=== PATIENT | female | born 1960 | race Caucasian/White ===

== ENCOUNTER 2016-09-27 15:07 | Emergency (ER) | payer BC, OTHER ==
[2016-09-27 16:36] LABS: Appearance,Urine Clear (Clear); Bilirubin,Urine Negative (Negative); Glucose,Urine (UA) Negative (Negative); Ketones,Urine Negative (Negative); Leukocyte Esterase,Urine Moderate (Negative); Nitrite,Urine Negative (Negative); Particle Count 1137; Protein,Urine Negative (Negative); RBC,Urine <1 /hpf (0-5); Specific Gravity,Urine 1.004 (1.001-1.035); Squamous Epithelial Cell,Urine 1 /hpf (0-4); UA Billing (MACRO vs. MICRO) MICRO; Urobilinogen,Urine <2.0 mg/dL (<2.0); WBC,Urine 7 /hpf (0-5)
--- NOTE | 2016-09-27 16:44 | XR ---
EXAMINATION TYPE: XR lumbosacral spine min 4V DATE OF EXAM: 09/27/2016 4:38 PM COMPARISON: NONE HISTORY: Pain TECHNIQUE: 5 view lumbar spine FINDINGS: There 5 lumbar-type vertebral bodies. The pedicles are intact. Disc heights are preserved. Vertebral body heights are preserved. Facets are normal. No spondylolytic defects are evident. IMPRESSION: 1. Normal lumbar spine
[2016-09-27] MEDS ORDERED: IBUPROFEN 800 MG TAB PO STA (17:44)
--- NOTE | 2016-09-27 17:46 | ED ---
Back Pain HPI - General Chief Complaint: Back Pain/Injury Stated Complaint: Back Injury ([facility]) Time Seen by Provider: 09/27/16 16:10 Source: patient Limitations: no limitations - History of Present Illness Initial Comments: Patient is a 56-year-old white female presenting to the emergency department with complaints of lumbar back pain. Patient states she was at work yesterday and bend over and she's had increased pain since. Patient also complains of urinary frequency without dysuria or hematuria. Patient denies chills, fevers, shortness of breath, chest pain, abdominal pain, numbness, tingling, urinary incontinence, fecal incontinence, or saddle astasia. Patient denies antibiotic use in the last 30 days. Patient states she has a history of frequent urinary tract infections and was last on antibiotics in May. MD Complaint: back pain Onset/Timin -: days(s) Similar Symptoms Previously: No Place: work Radiation: none Severity: moderate Severity scale (1-10): 8 Quality: aching Consistency: constant Improves With: none Worsens With: none Associated Symptoms: other (Urinary frequency) Treatments Prior to Arrival: acetaminophen - Related Data Previous Rx's Medication Instructions Recorded Ciprofloxacin HCl [Cipro] 250 mg PO Q12HR #6 tablet 09/27/16 HYDROcodone/APAP 5-325MG [[place] 1 tab PO Q4HR PRN #12 tab 09/27/16 5-325] Allergies Allergy/AdvReac Type Severity Reaction Status Date / Time adhesive AdvReac Rash/Hives Verified 09/27/16 17:55 amoxicillin AdvReac Nausea & Verified 09/27/16 17:55 Vomiting codeine AdvReac Nausea & Verified 09/27/16 17:55 Vomiting Sulfa (Sulfonamide AdvReac Nausea & Verified 09/27/16 17:55 Antibiotics) Vomiting Review of Systems ROS Statement: Those systems with pertinent positive or pertinent negative responses have been documented in the HPI. ROS Other: All systems not noted in ROS Statement are negative. Past Medical History Past Medical History: No Reported History History of Any Multi-Drug Resistant Organisms: None Reported Past Surgical History: No Surgical Hx Reported Past Psychological History: No Psychological Hx Reported Smoking Status: Never smoker Past Alcohol Use History: None Reported Past Drug Use History: None Reported General Exam Limitations: no limitations General appearance: alert, in no apparent distress Head exam: Present: atraumatic, normocephalic, normal inspection Eye exam: Present: normal appearance, PERRL, EOMI. Absent: scleral icterus, conjunctival injection, periorbital swelling ENT exam: Present: normal exam, mucous membranes moist Neck exam: Present: normal inspection, full ROM. Absent: tenderness, meningismus, lymphadenopathy Respiratory exam: Present: normal lung sounds bilaterally. Absent: respiratory distress, wheezes, rales, rhonchi, stridor Cardiovascular Exam: Present: regular rate, normal rhythm, normal heart sounds. Absent: systolic murmur, diastolic murmur, rubs, gallop, clicks GI/Abdominal exam: Present: soft, normal bowel sounds. Absent: tenderness Extremities exam: Present: normal inspection, full ROM, normal capillary refill. Absent: tenderness, calf tenderness Back exam: Present: normal inspection, full ROM, tenderness (To bilateral lower lumbar region). Absent: CVA tenderness (R), CVA tenderness (L), muscle spasm, paraspinal tenderness, vertebral tenderness, rash noted Expanded Back exam: Negative Straight Leg Raising: Left, Right Neurological exam: Present: alert, oriented X3, CN II-XII intact, normal gait, reflexes normal. Absent: motor sensory deficit Psychiatric exam: Present: normal affect, normal mood Skin exam: Present: warm, dry, intact, normal color. Absent: rash Course Vital Signs 09/27/16 09/27/16 15:57 17:56 Temperature 98.3 F 98.8 F Pulse Rate 75 78 Respiratory 20 16 Rate Blood Pressure 131/89 135/78 O2 Sat by Pulse 98 99 Oximetry Medical Decision Making - Medical Decision Making Urinary tract infection, urine culture pending. Patient started on Cipro. Lumbar strain. Patient instructed to continue Motrin and [place] for pain. Lumbar spine x-ray negative. Follow-up with primary care physician. Patient agrees with treatment plan. Follow-up parameters discharge instructions reviewed. - Lab Data Lab Results 09/27/16 Range/Units 16:20 Urine Color Light Yellow Urine Appearance Clear (Clear) Urine pH 6.0 (5.0-8.0) Ur Specific [place] 1.004 (1.001-1.035) Urine Protein Negative (Negative) Urine Glucose (UA) Negative (Negative) Urine Ketones Negative (Negative) Urine Blood Negative (Negative) Urine Nitrate Negative (Negative) Urine Bilirubin Negative (Negative) Urine Urobilinogen <2.0 (<2.0) mg/dL Ur Leukocyte Esterase Moderate H (Negative) Urine RBC <1 (0-5) /hpf Urine WBC 7 H (0-5) /hpf Ur Squamous Epith Cells 1 (0-4) /hpf - Radiology Data Radiology results: report reviewed Lumbar spine x-ray negative. Disposition Clinical Impression: Urinary tract infection, Lumbar strain Disposition: HOME SELF-CARE Condition: Good Instructions: Urinary Tract Infection in Women (ED), Acute Low Back Pain (ED) Additional Instructions: Please antibiotic as prescribed. Increase fluid intake to 6-8 glasses of water daily. Continue Motrin or [place] for pain. Follow-up with primary care physician as directed. Patient returns to the emergency department if symptoms do not improve or get worse. Prescriptions: Ciprofloxacin HCl [Cipro] 250 mg PO Q12HR #6 tablet HYDROcodone/APAP 5-325MG [[place] 5-325] 1 tab PO Q4HR PRN #12 tab PRN Reason: Pain Referrals: Noam Freeman DO [Primary Care Provider] - 1-2 days Time of Disposition: 17:46
[2016-09-27 17:57] VITALS: BP 135/78; PULSE 78; RESP 16; TEMP 98.8
== END 2016-09-27 18:04 | disposition home or self-care (01) ==
LOC: EC 15:07
DX: S39.012A Strain of muscle, fascia and tendon of lower back, initial encounter (principal); N39.0 Urinary tract infection, site not specified; Z88.0 Allergy status to penicillin; Z88.5 Allergy status to narcotic agent; Z88.2 Allergy status to sulfonamides; Z91.048 Other nonmedicinal substance allergy status; X50.1XXA Overexertion from prolonged static or awkward postures, initial encounter; Y92.69 Other specified industrial and construction area as the place of occurrence of the external cause; Y99.0 Civilian activity done for income or pay
CPT/HCPCS: 72110; 81001; 87086; 99283

== ENCOUNTER 2018-11-12 21:39 | Observation (INO) | payer BC ==
[2018-11-12 22:24] LABS: Basophils # (A) 0.1 k/uL (0-0.2); Basophils % (A) 1 %; Eosinophils # (A) 0.1 k/uL (0-0.7); Eosinophils % (A) 2 %; HCT 43.4 % (34.0-46.0); HGB 14.3 gm/dL (11.4-16.0); Lymphocytes # (A) 2.1 k/uL (1.0-4.8); Lymphocytes % (A) 43 %; MCH 30.2 pg (25.0-35.0); MCHC 32.9 g/dL (31.0-37.0); MCV 91.7 fL (80.0-100.0); Mean Platelet Volume 6.9; Monocytes # (A) 0.3 k/uL (0-1.0); Monocytes % (A) 6 %; Neutrophils # (A) 2.2 k/uL (1.3-7.7); Neutrophils % (A) 45 %; Platelet Count 227 k/uL (150-450); RBC 4.73 m/uL (3.80-5.40); RDW 12.9 % (11.5-15.5); WBC 4.8 k/uL (3.8-10.6)
--- NOTE | 2018-11-12 22:29 | XR ---
History: ITS.REASON XR Reason: Chest Pain Exam: XR CXR 2 VIEWS Comparison: None available FINDINGS: The lungs are clear. The cardiac silhouette appears upper limits. The visualized osseous structures appear within limits. Calcified right paratracheal node consistent with sequela of previous granulomatous disease. IMPRESSION: No evidence of acute disease.
--- NOTE | 2018-11-12 22:29 | ED ---
General Adult HPI - General Chief complaint: Chest Pain Stated complaint: chest discomfort Time Seen by Provider: 11/12/18 21:53 Source: patient, RN notes reviewed, old records reviewed Mode of arrival: wheelchair Limitations: no limitations - History of Present Illness Initial comments: 58-year-old female presented for evaluation of central chest tightness. States symptoms began approximately 6 hours prior to arrival. They've been constant. No significant dyspnea, no shoulder, jaw, arm pain. Patient describes pain as a tightness in the center of her chest. She has no history of chest pain, no history of CAD. No family history of CAD. She is a nonsmoker. Denies abdominal pain nausea vomiting. Denies diaphoresis. - Related Data Home Medications Medication Instructions Recorded Confirmed Calcium Carbonate [Calcium] 600 mg PO DAILY 11/12/18 11/12/18 Multivitamins, Thera [Multivitamin 1 tab PO DAILY 11/12/18 11/12/18 (formulary)] Allergies Allergy/AdvReac Type Severity Reaction Status Date / Time adhesive AdvReac Rash/Hives Verified 11/12/18 22:27 amoxicillin AdvReac Nausea & Verified 11/12/18 22:27 Vomiting codeine AdvReac Nausea & Verified 11/12/18 22:27 Vomiting Sulfa (Sulfonamide AdvReac Nausea & Verified 11/12/18 22:27 Antibiotics) Vomiting Review of Systems ROS Statement: Those systems with pertinent positive or pertinent negative responses have been documented in the HPI. ROS Other: All systems not noted in ROS Statement are negative. Past Medical History Past Medical History: Cancer Additional Past Medical History / Comment(s): breast Ca History of Any Multi-Drug Resistant Organisms: None Reported Past Surgical History: Hysterectomy Additional Past Surgical History / Comment(s): R mastectomy Past Psychological History: No Psychological Hx Reported Smoking Status: Never smoker Past Alcohol Use History: None Reported Past Drug Use History: None Reported General Exam Limitations: no limitations General appearance: alert, in no apparent distress Head exam: Present: atraumatic, normocephalic Eye exam: Present: normal appearance, PERRL ENT exam: Present: normal exam Neck exam: Present: normal inspection. Absent: tenderness, meningismus Respiratory exam: Present: normal lung sounds bilaterally. Absent: respiratory distress, wheezes Cardiovascular Exam: Present: regular rate, normal rhythm GI/Abdominal exam: Present: soft. Absent: distended, tenderness Rectal exam: Present: deferred Extremities exam: Present: normal inspection, normal capillary refill. Absent: calf tenderness Neurological exam: Present: alert, oriented X3 Psychiatric exam: Present: normal affect, normal mood Skin exam: Present: warm, dry, intact. Absent: cyanosis, diaphoretic Course Vital Signs 11/12/18 11/12/18 21:44 23:23 Temperature 98.4 F Pulse Rate 80 84 Respiratory 20 17 Rate Blood Pressure 163/99 160/80 O2 Sat by Pulse 99 99 Oximetry EKG Findings - EKG Comments: EKG Findings:: EKG: Sinus rhythm, left ventricular hypertrophy, nonspecific ST segment changes, no ST segment elevation, rate of 73, FL interval 126, QRS duration 88, QTC 440, no old for comparison. Medical Decision Making - Medical Decision Making 58-year-old female presenting with 6 hours of chest discomfort and tightness. No radiating symptoms. No nausea or vomiting. EKG is negative for ST segment elevation. Chest x-ray negative for acute cardiopulmonary disease. Patient has normal CBC, normal CMP, initial troponin is negative. Patient will be kept in observation for serial cardiac enzymes, telemetry, cardiology consultation. Case discussed with Dr. Jackson, will admit - Lab Data Result diagrams: 11/12/18 22:09 11/12/18 22:09 Lab Results 11/12/18 11/12/18 11/12/18 Range/Units 22:09 22:09 22:09 WBC 4.8 (3.8-10.6) k/uL RBC 4.73 (3.80-5.40) m/uL Hgb 14.3 (11.4-16.0) gm/dL Hct 43.4 (34.0-46.0) % MCV 91.7 (80.0-100.0) fL MCH 30.2 (25.0-35.0) pg MCHC 32.9 (31.0-37.0) g/dL RDW 12.9 (11.5-15.5) % Plt Count 227 (150-450) k/uL Neutrophils % 45 % Lymphocytes % 43 % Monocytes % 6 % Eosinophils % 2 % Basophils % 1 % Neutrophils # 2.2 (1.3-7.7) k/uL Lymphocytes # 2.1 (1.0-4.8) k/uL Monocytes # 0.3 (0-1.0) k/uL Eosinophils # 0.1 (0-0.7) k/uL Basophils # 0.1 (0-0.2) k/uL PT (9.0-12.0) sec INR (<1.2) APTT (22.0-30.0) sec Sodium 139 (137-145) mmol/L Potassium 4.0 (3.5-5.1) mmol/L Chloride 105 (98-107) mmol/L Carbon Dioxide 25 (22-30) mmol/L Anion Gap 9 mmol/L BUN 13 (7-17) mg/dL Creatinine 0.56 (0.52-1.04) mg/dL Est GFR (CKD-EPI)AfAm >90 (>60 ml/min/1.73 sqM) Est GFR (CKD-EPI)NonAf >90 (>60 ml/min/1.73 sqM) Glucose 82 (74-99) mg/dL Calcium 9.3 (8.4-10.2) mg/dL Magnesium 2.1 (1.6-2.3) mg/dL Total Bilirubin 0.5 (0.2-1.3) mg/dL AST 18 (14-36) U/L ALT 28 (9-52) U/L Alkaline Phosphatase 57 (38-126) U/L Troponin I (0.000-0.034) ng/mL NT-Pro-B Natriuret Pep 122 pg/mL Total Protein 7.3 (6.3-8.2) g/dL Albumin 4.6 (3.5-5.0) g/dL Lipase 150 (23-300) U/L 11/12/18 11/12/18 Range/Units 22:09 22:09 WBC (3.8-10.6) k/uL RBC (3.80-5.40) m/uL Hgb (11.4-16.0) gm/dL Hct (34.0-46.0) % MCV (80.0-100.0) fL MCH (25.0-35.0) pg MCHC (31.0-37.0) g/dL RDW (11.5-15.5) % Plt Count (150-450) k/uL Neutrophils % % Lymphocytes % % Monocytes % % Eosinophils % % Basophils % % Neutrophils # (1.3-7.7) k/uL Lymphocytes # (1.0-4.8) k/uL Monocytes # (0-1.0) k/uL Eosinophils # (0-0.7) k/uL Basophils # (0-0.2) k/uL PT 10.0 (9.0-12.0) sec INR 0.9 (<1.2) APTT 23.7 (22.0-30.0) sec Sodium (137-145) mmol/L Potassium (3.5-5.1) mmol/L Chloride (98-107) mmol/L Carbon Dioxide (22-30) mmol/L Anion Gap mmol/L BUN (7-17) mg/dL Creatinine (0.52-1.04) mg/dL Est GFR (CKD-EPI)AfAm (>60 ml/min/1.73 sqM) Est GFR (CKD-EPI)NonAf (>60 ml/min/1.73 sqM) Glucose (74-99) mg/dL Calcium (8.4-10.2) mg/dL Magnesium (1.6-2.3) mg/dL Total Bilirubin (0.2-1.3) mg/dL AST (14-36) U/L ALT (9-52) U/L Alkaline Phosphatase (38-126) U/L Troponin I <0.012 (0.000-0.034) ng/mL NT-Pro-B Natriuret Pep pg/mL Total Protein (6.3-8.2) g/dL Albumin (3.5-5.0) g/dL Lipase (23-300) U/L Disposition Clinical Impression: Chest pain Disposition: ADMITTED IP TO THIS [facility] Condition: Stable Is patient prescribed a controlled substance at d/c from ED?: No Referrals: Noam Freeman DO [Primary Care Provider] - 1-2 days Decision to Admit Reason: Admit from EC Decision Date: 11/12/18 Decision Time: 23:59
[2018-11-12 22:36] LABS: INR 0.9 (<1.2); Partial Thromboplastin Time 23.7 sec (22.0-30.0)
[2018-11-12 22:50] LABS: ALT 28 U/L (9-52); AST 18 U/L (14-36); Albumin 4.6 g/dL (3.5-5.0); Alkaline Phosphatase 57 U/L (38-126); Anion Gap 9 mmol/L; Blood Urea Nitrogen 13 mg/dL (7-17); Calcium 9.3 mg/dL (8.4-10.2); Carbon Dioxide 25 mmol/L (22-30); Chloride 105 mmol/L (98-107); Glucose 82 mg/dL (74-99); Lipase 150 U/L (23-300); Magnesium 2.1 mg/dL (1.6-2.3); Sodium 139 mmol/L (137-145); Total Bilirubin 0.5 mg/dL (0.2-1.3); Total Protein 7.3 g/dL (6.3-8.2)
[2018-11-12] MEDS ORDERED: ASPIRIN 325 MG TAB PO STA (23:27)
[2018-11-12] MEDS ORDERED: NITROGLYCERIN SL TABS 0.4 MG TAB SUBLINGUAL PRN (23:27)
[2018-11-12] MEDS ORDERED: NALOXONE 0.4 MG/ML 1 ML VIAL IV PRN (23:56)
[2018-11-12] MEDS ORDERED: ACETAMINOPHEN TAB 325 MG TAB PO PRN (23:56)
[2018-11-13 00:53] VITALS: BMI 29.0
[2018-11-13 01:11] VITALS: RESP 16
--- NOTE | 2018-11-13 07:02 | P.HPIM ---
History of Present Illness H&P Date: 11/12/18 Chief Complaint: Chest pain 58-year-old female with no significant past medical history She presented with 6 hour history of central pressure-like chest pain, started all of a sudden while resting doing nothing pain and then started radiating to the left shoulder and the back she rates the pain as 6 out of 10 in severity was not associated with any nausea vomiting dizziness lightheadedness heart racing or shortness of breath, patient is not a smoker has no history of hyperlipidemia and denies any history of heart disease. She denies any history of premature CAD in the family. Patient had a stress test done 3 years ago and was reported to be normal the stress test was done due to an anxiety panic attack to rule out ACS In the ED patient was given Nitropaste helped ease the pain a little bit but now she is feeling the pain in the left shoulder. There is no limitation in the range of motion of left shoulder pain doesn't get worse with movement activity coughing or deep breath. Otherwise EKG and initial labs were all negative vital signs are stable Review of Systems Pertinent positives as noted in HPI. All other systems were reviewed and are negative Past Medical History Past Medical History: Cancer Additional Past Medical History / Comment(s): breast Ca History of Any Multi-Drug Resistant Organisms: None Reported Past Surgical History: Hysterectomy Additional Past Surgical History / Comment(s): R mastectomy Past Anesthesia/Blood Transfusion Reactions: No Reported Reaction Past Psychological History: No Psychological Hx Reported Smoking Status: Never smoker Past Alcohol Use History: None Reported Past Drug Use History: None Reported - Past Family History Father History Unknown: Yes Mother Family Medical History: Diabetes Mellitus Medications and Allergies Home Medications Medication Instructions Recorded Confirmed Type Calcium Carbonate [Calcium] 600 mg PO DAILY 11/12/18 11/12/18 History Multivitamins, Thera [Multivitamin 1 tab PO DAILY 11/12/18 11/12/18 History (formulary)] Allergies Allergy/AdvReac Type Severity Reaction Status Date / Time adhesive AdvReac Rash/Hives Verified 11/12/18 22:27 amoxicillin AdvReac Nausea & Verified 11/12/18 22:27 Vomiting codeine AdvReac Nausea & Verified 11/12/18 22:27 Vomiting Sulfa (Sulfonamide AdvReac Nausea & Verified 11/12/18 22:27 Antibiotics) Vomiting Physical Exam Vitals: Vital Signs Temp Pulse Pulse Resp BP BP Pulse Ox 11/13/18 04:32 71 16 138/76 97 11/13/18 00:59 97.1 F L 68 16 143/70 96 11/13/18 00:01 97.9 F 76 18 134/92 96 11/12/18 23:23 84 17 160/80 99 11/12/18 21:44 98.4 F 80 20 163/99 99 Intake and Output 11/12/18 11/12/18 11/13/18 14:59 22:59 06:59 Other: Weight 77.111 kg 76.8 kg Constitutional: No acute distress, conversant, pleasant Eyes: Anicteric sclerae, moist conjunctiva, no lid-lag Pupils equal round reactive to light ENMT: NC/AT Oropharynx clear, no erythema, or exudates Neck: Supple, FROM, no masses, or JVD No carotid bruits No thyromegaly Lungs: Clear to auscultation Clear to percussion Normal respiratory effort, no accessory muscle use Cardiovascular: Heart regular in rate and rhythm, No murmurs, gallops, or rubs No peripheral edema Pain is not reproducible by palpation Abdominal: Soft Nontender, no guarding, rebound or rigidity Abdomen moving with respiration Normoactive bowel sounds No hepatomegaly, No splenomegaly No palpable mass No abdominal wall hernia noted Skin: Normal temperature, tone, texture, turgor No induration No subcutaneous nodules No rash, lesions No ulcers Extremities: No digital cyanosis No clubbing Pedal pulses intact and symmetrical Radial pulses intact and symmetrical No calf tenderness Psychiatric: Alert and oriented to person, place and time Appropriate affect fair judgment Neuro Muscles Strength 5/5 in all 4 extremities , full range of motion is intact in the left shoulder where patient is complaining of pain Sensation to light touch grossly present throughout Cranial nerves II-XII grossly intact No focal sensory deficits Lymphatics: no palpable cervical or supraclavicular , or inguinal lymph nodes Results CBC & Chem 7: 11/12/18 22:09 11/12/18 22:09 Thrombosis Risk Factor Assmnt - Choose All That Apply Any of the Below Risk Factors Present?: Yes Each Factor Represents 1 point: Age 41-60 years Thrombosis Risk Factor Assessment Total Risk Factor Score: 1 Thrombosis Risk Factor Assessment Level: Low Risk Assessment and Plan Assessment: 58 year old female with no significant past medical history admitted under observation for atypical chest pain to r/o ACS Plan: Atypical chest pain rule out ACS Aspirin Check lipid profile EKG unremarkable Cardiac monitoring Monitor cardiac enzymes Cardiology evaluation DVT prophylaxis heparin subcu 3 times a day Surrogate decision-maker: Patient sister CODE STATUS:*Full code Discussed with: Patient, ER Anticipated discharge: Less than [address]: *Home A total of 60 minutes was spent on the care of this complex patient more than 50% of the time was spent in counseling and care coordination.
[2018-11-13] MEDS ORDERED: HEPARIN SODIUM,PORCINE 5,000 UNIT/ML 1 ML VIAL SQ SCH (08:00)
[2018-11-13 09:30] VITALS: TEMP 98
--- NOTE | 2018-11-13 12:26 | P.PN ---
Subjective Progress Note Date: 11/13/18 Principal diagnosis: Chest pain Patient is a examined. No acute events overnight. Patient denies any chest pain, resolved around 10 PM last night. No shortness of breath or palpitations. Objective - Vital Signs Vital signs: Vital Signs Temp 98.0 F 11/13/18 08:00 Pulse 80 11/13/18 08:00 Resp 16 11/13/18 08:00 BP 165/83 11/13/18 08:00 Pulse Ox 98 11/13/18 08:00 Intake & Output 11/12/18 11/13/18 11/13/18 18:59 06:59 18:59 Weight 76.8 kg - Exam General: [non toxic], [no distress], [appears at stated age] Derm: [warm], [dry] Head: [atraumatic], [normocephalic], [symmetric] Eyes: [EOMI], [no lid lag], [anicteric sclera] Mouth: [no lip lesion], [mucus membranes moist] Cardiovascular: [S1S2 reg], [no murmur], [positive posterior tibial pulse bilateral], Lungs: [CTA bilateral], [no rhonchi, no rales] , [no accessory muscle use] Abdominal: [soft], [ nontender to palpation], [no guarding], [no appreciable organomegaly] Ext: [no gross muscle atrophy], [no edema], [no contractures] Neuro: [ CN II-XI grossly intact], [no focal neuro deficits] Psych: [Alert], [oriented], [appropriate affect] - Labs CBC & Chem 7: 11/12/18 22:09 11/12/18 22:09 Assessment and Plan Assessment: Assessment and Plan 1. Chest pain, atypical 1. Troponin less than 0.012, EKG showed normal sinus rhythm, ACS ruled out. Chest x-ray negative. Cartilage a consulted, recommends echocardiogram. Pain management with Tylenol and Nitrostat. Telemetry monitoring. Heart healthy diet. Patient admitted for atypical chest pain. Discussed with cardiology, plans to follow echocardiogram, cleared for outpatient stress if negative.
[2018-11-13] MEDS ORDERED: LOSARTAN 25 MG TAB PO SCH (13:45)
--- NOTE | 2018-11-13 13:47 | P.CRDCN ---
History of Present Illness History of present illness: This is a pleasant 58-year-old female past medical history significant only for breast cancer. She denies history of coronary artery disease, hypertension, dyslipidemia or diabetes mellitus. 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 We have been asked to see her in consultation for symptoms of chest discomfort. She states yesterday afternoon after eating lunch at work she developed a burning and tight sensation in the midsternal region with no radiation to the arm, back, neck or jaw. She denies associated shortness of breath, dizziness, palpitations, nausea, vomiting or diaphoresis. The symptoms persisted for approximately 6 hours prior to arrival to the emergency department. She was given some gentle nitroglycerin upon arrival in her chest pain subsided. She's had no further symptoms of chest discomfort since that time. She is seen and examined resting comfortably in bed in no acute distress. She states she exercises daily 4 miles on the treadmill every morning and never has any exertional chest discomfort. EKG reveals sinus mechanism, left ventricular hypertrophy and nonspecific ST abnormalities noted. Chest x-ray is negative for an acute cardiopulmonary process. Laboratory data reviewed, WBC 4.8, hemoglobin 14.3, platelets 227, sodium 139, potassium 4.0, creatinine 0.56, magnesium 2.1, cardiac enzymes negative 3,NT proBNP 122. She takes no daily cardiac medications. At the time of my exam: CONSTITUTIONAL: Denies fever. Denies chills. EYES: Denies blurred vision. Denies vision changes. Denies eye pain. EARS, NOSE, MOUTH & THROAT: Denies headache. Denies sore throat. Denies ear pain. CARDIOVASCULAR: Denies chest pain. Denies shortness of breath. Denies orthopnea. Denies PND. Denies palpitations. RESPIRATORY: Denies cough. GASTROINTESTINAL: Denies abdominal pain. Denies diarrhea. Denies constipation. Denies nausea. Denies vomiting. MUSCULOSKELETAL: Denies myalgias. INTEGUMENTARY: Denies pruitis. Denies rash. NEUROLOGIC: Denies numbness. Denies tingling. Denies weakness. PSYCHIATRIC: Denies anxiety. Denies depression. ENDOCRINE: Denies fatigue. Denies weight change. Denies polydipsia. Denies polyurina. GENITOURINARY: Denies burning, hematuria or urgency with micturation. HEMATOLOGIC: Denies history of anemia. Denies bleeding. Blood pressure 165/83 heart rate 88 afebrile maintaining oxygen saturation on room air GENERAL: This is a 78-year-old female in no apparent distress at the time of my examination. HEENT: Head is atraumatic, normocephalic. Pupils are equal, round. Sclerae anicteric. Conjunctivae are clear. Mucous membranes of the mouth are moist. Neck is supple. There is no jugular venous distention. No carotid bruit is heard. LUNGS: Clear to auscultation no wheezes, rales or rhonchi. No chest wall tenderness is noted on palpation or with deep breathing. HEART: Regular rate and rhythm without murmurs, rubs or gallops. S1 and S2 heard. ABDOMEN: Soft, nontender. Bowel sounds are heard. No organomegaly noted. EXTREMITIES: No evidence of peripheral edema and no calf tenderness noted. VASCULAR: Radial and dorsalis pedis pulses palpated, no evidence of clubbing. NEUROLOGIC: Patient is awake, alert and oriented x3. ASSESSMENT Chest pain atypical for angina. An acute coronary event has been ruled out. Hypertension PLAN An acute coronary event has been ruled out. Initiated on small dose of losartan 25 mg daily. Obtain 2-D echocardiogram and Doppler study to assess cardiac structure and function. I have asked the patient to increase activity and ambulation in the halls and assess for further symptoms of chest discomfort. Further recommendations to follow. Thank you kindly for this consultation. Nurse Practitioner note has been reviewed, I agree with a documented findings an d plan of care. Patient was seen and examined. Past Medical History Past Medical History: Cancer Additional Past Medical History / Comment(s): breast Ca History of Any Multi-Drug Resistant Organisms: None Reported Past Surgical History: Hysterectomy Additional Past Surgical History / Comment(s): R mastectomy Past Anesthesia/Blood Transfusion Reactions: No Reported Reaction Past Psychological History: No Psychological Hx Reported Smoking Status: Never smoker Past Alcohol Use History: None Reported Past Drug Use History: None Reported - Past Family History Father History Unknown: Yes Mother Family Medical History: Diabetes Mellitus Medications and Allergies Home Medications Medication Instructions Recorded Confirmed Type Calcium Carbonate [Calcium] 600 mg PO DAILY 11/12/18 11/12/18 History Multivitamins, Thera [Multivitamin 1 tab PO DAILY 11/12/18 11/12/18 History (formulary)] Allergies Allergy/AdvReac Type Severity Reaction Status Date / Time adhesive AdvReac Rash/Hives Verified 11/12/18 22:27 amoxicillin AdvReac Nausea & Verified 11/12/18 22:27 Vomiting codeine AdvReac Nausea & Verified 11/12/18 22:27 Vomiting Sulfa (Sulfonamide AdvReac Nausea & Verified 11/12/18 22:27 Antibiotics) Vomiting Physical Exam Vitals: Vital Signs Temp Pulse Pulse Resp BP BP Pulse Ox 11/13/18 08:00 98.0 F 80 16 165/83 98 11/13/18 04:32 71 16 138/76 97 11/13/18 00:59 97.1 F L 68 16 143/70 96 11/13/18 00:01 97.9 F 76 18 134/92 96 11/12/18 23:23 84 17 160/80 99 11/12/18 21:44 98.4 F 80 20 163/99 99 Intake and Output 11/12/18 11/13/18 11/13/18 22:59 06:59 14:59 Intake Total 120 Balance 120 Intake: Oral 120 Other: Weight 77.111 kg 76.8 kg Results 11/12/18 22:09 11/12/18 22:09 Cardiac Enzymes 11/12/18 11/12/18 11/13/18 Range/Units 22:09 22:09 03:48 AST 18 (14-36) U/L Troponin I <0.012 <0.012 (0.000-0.034) ng/mL 11/13/18 Range/Units 10:35 AST (14-36) U/L Troponin I <0.012 (0.000-0.034) ng/mL Coagulation 11/12/18 Range/Units 22:09 PT 10.0 (9.0-12.0) sec APTT 23.7 (22.0-30.0) sec CBC 11/12/18 Range/Units 22:09 WBC 4.8 (3.8-10.6) k/uL RBC 4.73 (3.80-5.40) m/uL Hgb 14.3 (11.4-16.0) gm/dL Hct 43.4 (34.0-46.0) % Plt Count 227 (150-450) k/uL Comprehensive Metabolic Panel 11/12/18 Range/Units 22:09 Sodium 139 (137-145) mmol/L Potassium 4.0 (3.5-5.1) mmol/L Chloride 105 (98-107) mmol/L Carbon Dioxide 25 (22-30) mmol/L BUN 13 (7-17) mg/dL Creatinine 0.56 (0.52-1.04) mg/dL Glucose 82 (74-99) mg/dL Calcium 9.3 (8.4-10.2) mg/dL AST 18 (14-36) U/L ALT 28 (9-52) U/L Alkaline Phosphatase 57 (38-126) U/L Total Protein 7.3 (6.3-8.2) g/dL Albumin 4.6 (3.5-5.0) g/dL Current Medications Generic Name Dose Route Start Last Admin Trade Name Freq PRN Reason Stop Dose Admin Acetaminophen 650 mg 11/12/18 23:56 Tylenol Tab PO Q6HR PRN Mild Pain or Fever > 100.5 Heparin Sodium (Porcine) 5,000 unit 11/13/18 08:00 Heparin SQ Q8HR SYLVIA Naloxone HCl 0.2 mg 11/12/18 23:56 Narcan IV Q2M PRN Opioid Reversal Nitroglycerin 0.4 mg 11/12/18 23:27 11/12/18 23:34 Nitrostat SUBLINGUAL 0.4 mg Q5M PRN Administration Chest Pain Intake and Output 11/12/18 11/13/18 11/13/18 22:59 06:59 14:59 Intake Total 120 Balance 120 Intake: Oral 120 Other: Weight 77.111 kg 76.8 kg 11/12/18 22:09 11/12/18 22:09
[2018-11-13 14:15] LABS: Cholesterol 172 mg/dL (<200); HDL Cholesterol 58 mg/dL (40-60); LDL Cholesterol,Calculated 102 mg/dL (0-99); Triglycerides 61 mg/dL (<150)
[2018-11-13 15:27] VITALS: BP 165/89; PULSE 76
--- NOTE | 2018-11-13 17:11 | ECHOF ---
Referral Reason: MEASUREMENTS -------- HEIGHT: 162.6 cm WEIGHT: 76.7 kg BP: 165/83 RVIDd: 3.0 cm (< 3.3) IVSd: 1.1 cm (0.6 - 1.1) LVIDd: 4.6 cm (3.9 - 5.3) LVPWd: 1.2 cm (0.6 - 1.1) IVSs: 1.7 cm LVIDs: 3.2 cm LVPWs: 1.6 cm LA Diam: 3.4 cm (2.7 - 3.8) LAESV Index (A-L): 18.21 ml/m Ao Diam: 3.1 cm (2.0 - 3.7) AV Cusp: 2.2 cm (1.5 - 2.6) MV EXCURSION: 12.039 mm (> 18.000) MV EF SLOPE: 75 mm/s (70 - 150) EPSS: 0.4 cm MV E Micheal: 0.92 m/s MV DecT: 181 ms MV A Micheal: 1.00 m/s MV E/A Ratio: 0.92 RAP: 5.00 mmHg RVSP: 33.38 mmHg FINDINGS -------- Sinus rhythm. This was a technically good study. The left ventricular size is normal. There is borderline concentric left ventricular hypertrophy. Overall left ventricular systolic function is normal with, an EF between 60 - 65 %. The right ventricle is normal in size. Normal LA size by volume 22+/-6 ml/m2. The right atrium is normal in size. The aortic valve is trileaflet and appears structurally normal. The mitral valve is normal. Mild tricuspid regurgitation present. There is borderline pulmonary hypertension. The right ventr icular systolic pressure, as measured by Doppler, is 33.38mmHg. Trace/mild (physiologic) pulmonic regurgitation. The aortic root size is normal. Normal inferior vena cava with normal inspiratory collapse consistent with estimated right atrial pre ssure of 5 mmHg. There is no pericardial effusion. CONCLUSIONS -------- 1. Sinus rhythm. 2. This was a technically good study. 3. The left ventricular size is normal. 4. There is borderline concentric left ventricular hypertrophy. 5. Overall left ventricular systolic function is normal with, an EF between 60 - 65 %. 6. The right ventricle is normal in size. 7. Normal LA size by volume 22+/-6 ml/m2. 8. The right atrium is normal in size. 9. The aortic valve is trileaflet and appears structurally normal. 10. The mitral valve is normal. 11. Mild tricuspid regurgitation present. 12. There is borderline pulmonary hypertension. 13. The right ventricular systolic pressure, as measured by Doppler, is 33.38mmHg. 14. Trace/mild (physiologic) pulmonic regurgitation. 15. The aortic root size is normal. 16. Normal inferior vena cava with normal inspiratory collapse consistent with estimated right atrial pressure of 5 mmHg. 17. There is no pericardial effusion. SCHOOL PRINCIPAL: Freda Jones RDCS
== END 2018-11-13 17:27 | disposition home or self-care (01) ==
LOC: EC 21:39 → 3SCARD 23:59
PROVIDERS: ADMIT Internal Medicine; ATTEND Internal Medicine
DX: R07.89 Other chest pain (principal); I10 Essential (primary) hypertension; Z88.5 Allergy status to narcotic agent; Z88.0 Allergy status to penicillin; Z88.2 Allergy status to sulfonamides; Z91.048 Other nonmedicinal substance allergy status; Z85.3 Personal history of malignant neoplasm of breast; Z90.11 Acquired absence of right breast and nipple; Z90.710 Acquired absence of both cervix and uterus
CPT/HCPCS: 96372; 99285; 36415; 93005; 93306; 83880; 80061; 80053; 83690; 83735; 84484 ×2; 85025; 85610; 85730; 71046; G0378 ×2; J1644

== ENCOUNTER → 2019-01-21 | Outpatient (CLI) | payer BC ==
--- NOTE | 2019-01-21 13:42 | EST ---
EXERCISE STRESS DATE OF SERVICE: 01/21/2019 AGE: 58 SEX: Female HT: 64 WT: 170 PROTOCOL: Chandrakant STAGE: III DURATION OF EXERCISE: 7 minutes HEART RATE REST: 82 BLOOD PRESSURE REST: 136/77 MAXIMUM HEART RATE ACHIEVED: 151 MAXIMUM BLOOD PRESSURE: 147/62 85% MPHR: 136 100% MPHR: 160 METS: 8.5 INDICATIONS: Hypertension and chest pain. CLINICAL INFORMATION: Patient was exercised for a total period of 7 minutes. Peak heart rate of 151 was achieved. Maximum blood pressure of 147/62 mmHg was noted. The patient did not complain of any chest pain during the test. Resting EKG shows normal sinus rhythm with normal NV interval and QRS duration and normal ST-T waves. No ST-segment depression suggestive of ischemia was noted. No dysrhythmias are noted. FINAL IMPRESSION: 1. This exercise test is not suggestive of ischemia. 2. Patient did not complain of any anginal pain during the test. 3. No dysrhythmias are noted. MMODL / IJN: [id number] /
== END | disposition home or self-care (01) ==
LOC: RADNMMAIN 08:24
PROVIDERS: ATTEND Family Medicine
DX: I27.20 Pulmonary hypertension, unspecified (principal)
CPT/HCPCS: 93017

== ENCOUNTER → 2019-08-08 | Outpatient (CLI) | payer BC ==
--- NOTE | 2019-08-08 08:40 | MM ---
Reason for exam: additional evaluation requested from prior study. Last mammogram was performed 1 year and 3 months ago. History: Patient is postmenopausal and has history of breast cancer at age 46. Implant in the left breast, 2009. Saline implant in the right breast, November 09, 2007. Mastectomy of the right breast, March 24, 2007. Malignant right mammotome panel of the right breast, February 26, 2007. Malignant right mammotome panel of the right breast, February 26, 2007. Took hormonal contraceptives for 9 years. Took antineoplastic for 5 years beginning at age 46. Physical Findings: Nurse did not find any significant physical abnormalities on exam. MG Diag Mamm Implant LT w CAD CC, MLO, and ID view(s) were taken of the left breast. Prior study comparison: May 18, 2018, left breast MG 3d diag mammo imp w/cad LT. January 29, 2016, left breast MG diag mamm implant LT w CAD. There are scattered fibroglandular densities. There is no discrete abnormality. Left subglandular implant redemonstrated. These results were verbally communicated with the patient and result sheet given to the patient on 08/08/19. ASSESSMENT: Benign, BI-RAD 2 RECOMMENDATION: Follow-up diagnostic mammogram of the left breast in 1 year.
== END | disposition home or self-care (01) ==
LOC: RADMAMWWP 07:44
PROVIDERS: ATTEND Family Medicine
DX: Z08 Encounter for follow-up examination after completed treatment for malignant neoplasm (principal); Z85.3 Personal history of malignant neoplasm of breast; Z80.3 Family history of malignant neoplasm of breast; Z90.11 Acquired absence of right breast and nipple; Z98.82 Breast implant status
CPT/HCPCS: 77065

== ENCOUNTER 2021-03-18 17:09 | Emergency (ER) | payer BC ==
[2021-03-18 17:20] VITALS: TEMP 98.7
--- NOTE | 2021-03-18 17:53 | ED ---
General Adult HPI - General Chief complaint: Recheck/Abnormal Lab/Rx Stated complaint: Chest wall pain Time Seen by Provider: 03/18/21 17:32 Source: patient Mode of arrival: ambulatory Limitations: no limitations - History of Present Illness Initial comments: Dictation was produced using pushd dictation software. please excuse any grammatical, word or spelling errors. Chief Complaint: 60-year-old female presents with left breast pain History of Present Illness: 60-year-old feels presents with 4 days of left breast pain. Patient has history of breast implantation and breast reconstruction 14 years ago. Patient states that she has a throbbing sensation to the left lateral inferior portion of the breast. States pain is intermittent and slightly worsened with palpation. Denies any shortness of breath. She states that the pain radiates to her axillary area. Denies any chest pain. She called her primary care doctor and was redirected to the emergency room for x- rays.No associated diaphoresis. No history of diabetes, hypertension, tobacco use or dyslipidemia. The ROS documented in this emergency department record has been reviewed and confirmed by me. Those systems with pertinent positive or negative responses have been documented in the HPI. All other systems are other negative and/or noncontributory. PHYSICAL EXAM: General Impression: Alert and oriented x3, not in acute distress HEENT: Normocephalic atraumatic, extra-ocular movements intact, pupils equal and reactive to light bilaterally, mucous membranes moist. Cardiovascular: Heart regular rate and rhythm Chest: Able to complete full sentences, no retractions, no tachypnea Abdomen: abdomen soft, non-tender, non-distended, no organomegaly Musculoskeletal: Pulses present and equal in all extremities, no peripheral edema Motor: no focal deficits noted Neurological: CN II-XII grossly intact, no focal motor or sensory deficits noted Skin: Intact with no visualized rashes Psych: Normal affect and mood Breast exam: No abnormal skin changes to the left breast, no palpable masses in the breast fuller or in the left axilla, there is tenderness to palpation of the left breast worst in the left lateral quadrant. ED course: 60-year-old female presents with left breast pain. Vital Signs upon arrival are within acceptable limits. Chest x-ray is unremarkable. No obvious cause for patient's left breast pain. Patient told to follow-up with breast surgeon. Patient be discharged. Return precautions discussed. Patient told to seek immediate medical attention if she has visual sensation. Chest that radiates to the jaw shoulder associated with diaphoresis, nausea and shortness of breath. Patient has no risk factors for acute coronary syndrome. Her pain is very atypical for ACS or life-threatening cardiopulmonary process. - Related Data Home Medications Medication Instructions Recorded Confirmed Calcium Carbonate [Calcium] 600 mg PO DAILY 11/12/18 11/12/18 Multivitamins, Thera [Multivitamin 1 tab PO DAILY 11/12/18 11/12/18 (formulary)] Previous Rx's Medication Instructions Recorded Losartan [Cozaar] 25 mg PO DAILY #30 tab 11/13/18 Allergies Allergy/AdvReac Type Severity Reaction Status Date / Time adhesive AdvReac Rash/Hives Verified 03/18/21 17:20 amoxicillin AdvReac Nausea & Verified 03/18/21 17:20 Vomiting codeine AdvReac Nausea & Verified 03/18/21 17:20 Vomiting Sulfa (Sulfonamide AdvReac Nausea & Verified 03/18/21 17:20 Antibiotics) Vomiting Review of Systems ROS Statement: Those systems with pertinent positive or pertinent negative responses have been documented in the HPI. ROS Other: All systems not noted in ROS Statement are negative. Past Medical History Past Medical History: Cancer Additional Past Medical History / Comment(s): breast Ca History of Any Multi-Drug Resistant Organisms: None Reported Past Surgical History: Hysterectomy Additional Past Surgical History / Comment(s): R mastectomy, terry breast reconstruction with terry implants Past Anesthesia/Blood Transfusion Reactions: No Reported Reaction Past Psychological History: No Psychological Hx Reported Smoking Status: Never smoker Past Alcohol Use History: None Reported Past Drug Use History: None Reported - Past Family History Father History Unknown: Yes Mother Family Medical History: Diabetes Mellitus General Exam Limitations: no limitations Course Vital Signs 03/18/21 17:17 Temperature 98.7 F Pulse Rate 92 Respiratory 20 Rate Blood Pressure 155/105 O2 Sat by Pulse 99 Oximetry Disposition Clinical Impression: Breast pain Disposition: HOME SELF-CARE Condition: Fair Instructions (If sedation given, give patient instructions): Breast Self Exam for Women (ED) Is patient prescribed a controlled substance at d/c from ED?: No Referrals: Melissa Jensen MD [STAFF PHYSICIAN] - 1-2 days
--- NOTE | 2021-03-18 18:18 | XR ---
EXAMINATION TYPE: XR chest 2V DATE OF EXAM: 03/18/2021 COMPARISON: 11/12/2018 HISTORY: Left breast pain TECHNIQUE: FINDINGS: Heart and mediastinum are normal. Lungs are clear of infiltrate. There is no heart failure. There are no hilar masses. There is calcified azygos lymph node. Thoracic spine is intact. IMPRESSION: No active cardiopulmonary disease. No change.
[2021-03-18 19:27] VITALS: BP 139/86; PULSE 76; RESP 18
== END 2021-03-18 19:50 | disposition home or self-care (01) ==
LOC: EC 17:09
DX: N64.4 Mastodynia (principal); Z85.3 Personal history of malignant neoplasm of breast; Z88.0 Allergy status to penicillin; Z88.2 Allergy status to sulfonamides; Z88.5 Allergy status to narcotic agent
CPT/HCPCS: 71046; 93005; 99284

== ENCOUNTER → 2021-03-21 | Outpatient (CLI) | payer BC ==
--- NOTE | 2021-03-21 11:50 | USB ---
EXAMINATION TYPE: US breast limited LT DATE OF EXAM: 03/21/2021 COMPARISON: Mammogram same date CLINICAL HISTORY: R92.8 abnormal mammogram. Findings: The left breast was scanned with ultrasound in all 4 quadrants, the retroareolar region and the axill a. Implant is noted. Retroareolar ductal ectasia is seen. No sonographic correlate for left breast pain. IMPRESSION: No sonographic evidence for malignancy. Clinical follow-up is recommended for left breast pain. BI-RADS 2, benign. Left mammogram is recommended in one year.
--- NOTE | 2021-03-21 14:20 | MM ---
Reason for exam: additional evaluation requested from prior study. Last mammogram was performed 1 year and 7 months ago. History: Patient is postmenopausal and has history of breast cancer at age 46. Implant in the left breast, 2009. Saline implant in the right breast, November 09, 2007. Mastectomy of the right breast, March 24, 2007. Malignant right mammotome panel of the right breast, February 26, 2007. Malignant right mammotome panel of the right breast, February 26, 2007. Took hormonal contraceptives for 9 years. Took antineoplastic for 5 years beginning at age 46. Physical Findings: Nurse did not find any significant physical abnormalities on exam. MG 3D Diag Mammo Imp W/Cad LT CC, MLO, and ID view(s) were taken of the left breast. Prior study comparison: August 08, 2019, left breast MG diag mamm implant LT w CAD. May 18, 2018, left breast MG 3d diag mammo imp w/cad LT. There are scattered fibroglandular densities. Stable post right mastectomy. Left silicone implant limits compression and obscures portions of the breast. Left ultrasound is recommended for pain. These results were verbally communicated with the patient and result sheet given to the patient on 03/21/21. ASSESSMENT: Incomplete: need additional imaging evaluation, BI-RAD 0 RECOMMENDATION: Ultrasound of the left breast.
== END | disposition home or self-care (01) ==
LOC: RADMAMWWP 10:20
PROVIDERS: ATTEND Family Medicine
DX: N64.89 Other specified disorders of breast (principal); Z90.11 Acquired absence of right breast and nipple; Z78.0 Asymptomatic menopausal state; Z85.3 Personal history of malignant neoplasm of breast
CPT/HCPCS: 77061; 77065

== ENCOUNTER → 2022-03-26 | Outpatient (CLI) | payer BC ==
--- NOTE | 2022-03-26 08:14 | MM ---
Reason for Exam: Additional evaluation requested from prior study. Last screening mammogram was performed 12 month(s) ago. Patient History: Menarche at age 9. First Full-Term at age 15. Left ovary removed at age 47. Right ovary removed at age 47. Hysterectomy at age 47. Postmenopausal. Breast cancer, right, age 46. Patient used Hormonal Contraceptives for 9 years. 03/24/2007, Mastectomy on the Right side. 02/26/2007, Malignant Core Biopsy on the right side. 02/26/2007, Malignant Core Biopsy on the right side. 11/09/2007, Implant on the right side. 2009, Implant on the left side. Prior Study Comparison: 05/18/2018 Left Diagnostic Mammogram, [facility]. 08/08/2019 Left Diagnostic Mammogram, [facility]. 03/21/2021 Left Diagnostic Mammogram, [facility]. Tissue Density: Left: The breast tissue is heterogeneously dense. This may lower the sensitivity of mammography. Findings: Analyzed By CAD. Implant is intact and in place. There is no evidence for mass or distortion. No suspicious calcifications seen. No skin thickening noted. Overall Assessment: Benign, BI-RAD 2 Management: Diagnostic Mammogram of the left breast in 1 year. A clinical breast exam by your physician is recommended on an annual basis and results should be correlated with mammographic findings. This exam should not preclude additional follow-up of suspicious palpable abnormalities. Results were given to the patient verbally at the time of exam. Electronically signed and approved by: Joaquim Zepeda M.D. Radiologis
== END | disposition home or self-care (01) ==
LOC: RADMAMWWP 06:49
PROVIDERS: ATTEND Family Medicine
DX: R92.8 Other abnormal and inconclusive findings on diagnostic imaging of breast (principal); Z78.0 Asymptomatic menopausal state; Z80.3 Family history of malignant neoplasm of breast
CPT/HCPCS: 77065

== ENCOUNTER 2023-03-11 18:29 | Emergency (ER) | payer BC ==
--- NOTE | 2023-03-11 19:33 | ED ---
General Adult HPI - General Source: patient Mode of arrival: ambulatory Limitations: no limitations <Chidi Justin - Last Filed: 03/11/23 19:33> <Ray Sanchez - Last Filed: 03/12/23 17:04> - General Chief complaint: Chest Pain Stated complaint: heart issue Time Seen by Provider: 03/11/23 19:33 - History of Present Illness Initial comments: 62-year-old female history of vertigo presenting with chief complaint of dizziness. States that the dizziness started while she was at work, was primarily happening when she was bending down and standing back up picking up boxes. She went to an urgent care who told her that she had some EKG changes and should be evaluated in the ER. No chest pain or difficulty breathing. (Chidi Justin) This is a 62-year-old female DF for evaluation of dizziness dizziness and lightheadedness. Patient was told to the emergency department due to the abnormal EKGs here which did present with dizziness with history of vertigo. Patient denies chest pain or shortness of breath (Ray Sanchez) - Related Data Home Medications Medication Instructions Recorded Confirmed Calcium Carbonate [Calcium] 600 mg PO DAILY 11/12/18 11/12/18 Multivitamins, Thera [Multivitamin 1 tab PO DAILY 11/12/18 11/12/18 (formulary)] Previous Rx's Medication Instructions Recorded Losartan [Cozaar] 25 mg PO DAILY #30 tab 11/13/18 Allergies Allergy/AdvReac Type Severity Reaction Status Date / Time adhesive AdvReac Rash/Hives Verified 03/11/23 18:35 amoxicillin AdvReac Nausea & Verified 03/11/23 18:35 Vomiting codeine AdvReac Nausea & Verified 03/11/23 18:35 Vomiting Sulfa (Sulfonamide AdvReac Nausea & Verified 03/11/23 18:35 Antibiotics) Vomiting Review of Systems ROS Other: All systems not noted in ROS Statement are negative. <Chidi Justin - Last Filed: 03/11/23 19:33> ROS Other: All systems not noted in ROS Statement are negative. <Ray Sanchez - Last Filed: 03/12/23 17:04> ROS Statement: Those systems with pertinent positive or pertinent negative responses have been documented in the HPI. Past Medical History Past Medical History: Cancer Additional Past Medical History / Comment(s): breast Ca History of Any Multi-Drug Resistant Organisms: None Reported Past Surgical History: Breast Surgery, Section, Hysterectomy Additional Past Surgical History / Comment(s): R mastectomy, terry breast reconstruction with terry implants Past Anesthesia/Blood Transfusion Reactions: No Reported Reaction Past Psychological History: Anxiety Smoking Status: Never smoker Past Alcohol Use History: None Reported Past Drug Use History: None Reported - Past Family History Father History Unknown: Yes Mother Family Medical History: Diabetes Mellitus <Chidi Justin - Last Filed: 03/11/23 19:33> General Exam Limitations: no limitations <Chidi Justin - Last Filed: 03/11/23 19:33> General appearance: alert, in no apparent distress Head exam: Present: atraumatic, normocephalic, normal inspection Eye exam: Present: normal appearance, PERRL, EOMI. Absent: scleral icterus, conjunctival injection, periorbital swelling ENT exam: Present: normal exam, mucous membranes moist Neck exam: Present: normal inspection. Absent: tenderness, meningismus, lymphadenopathy Respiratory exam: Present: normal lung sounds bilaterally. Absent: respiratory distress, wheezes, rales, rhonchi, stridor Cardiovascular Exam: Present: regular rate, normal rhythm, normal heart sounds. Absent: systolic murmur, diastolic murmur, rubs, gallop, clicks GI/Abdominal exam: Present: soft, normal bowel sounds. Absent: distended, tenderness, guarding, rebound, rigid Extremities exam: Present: normal inspection, full ROM, normal capillary refill. Absent: tenderness, pedal edema, joint swelling, calf tenderness Back exam: Present: normal inspection Neurological exam: Present: alert, oriented X3, CN II-XII intact Psychiatric exam: Present: normal affect, normal mood Skin exam: Present: warm, dry, intact, normal color. Absent: rash <Ray Snachez - Last Filed: 03/12/23 17:04> - General Exam Comments Initial Comments: Visual Physical Exam Vital signs reviewed General: Well-appearing, nontoxic, no acute distress. Head: Normocephalic, atraumatic Eyes: PERRLA, EOMI ENT: Airway patent Chest: Nonlabored breathing Skin: No visual rash, normal skin tone Neuro: Alert and oriented 3 Musculoskeletal: No gross abnormalities (Chidi Justin) Course <Ray Sanchez - Last Filed: 03/12/23 17:04> Vital Signs 03/11/23 03/11/23 03/11/23 18:36 20:56 20:58 Temperature 98.2 F 97.7 F Pulse Rate 108 H 78 Pulse Rate [ 84 Online Producer ] Respiratory 18 17 Rate Blood Pressure 160/89 150/89 O2 Sat by Pulse 95 100 Oximetry 03/11/23 22:02 Temperature 98.0 F Pulse Rate 80 Pulse Rate [ Online Producer ] Respiratory 17 Rate Blood Pressure 144/84 O2 Sat by Pulse 97 Oximetry - Reevaluation(s) Reevaluation #1: 03/11/23 23:42 Medical records reviewed (Ray Sanchez) Reevaluation #2: 03/11/23 23:42 Patient symptoms improved (Ray Sanchez) Reevaluation #3: 03/11/23 23:42 Patient informed of results questions answered (Ray Sanchez) Reevaluation #4: 03/11/23 23:42 Was pt. sent in by a medical professional or institution? @ -no Did you speak to anyone other than the patient for history? @ -no Did you review nursing and triage notes? @ -agree Were old charts reviewed? @ -yes Differential Diagnosis? @ -prior EKG interpreted by me (3pts min.)? @ -yes X-rays interpreted by me (1pt min.)? @ -yes CT interpreted by me (1pt min.)? @ -no U/S interpreted by me (1pt. min.)? @ -no What testing was considered but not performed? (CT, X-rays, U/S, labs)? Why? @ -no What meds were considered but not given? Why? @ -no Did you discuss the management of the patient with other professionals? @ -no Did you reconcile home meds? @ -no Was smoking cessation discussed for >3mins.? @ -no Was critical care preformed (if so, how long)? @ -no Were there social determinants of health that impacted care today? How? (Homelessness, low income, unemployed, alcoholism, drug addiction, transportation, low edu. Level, literacy, decrease access to med. care, half-way, rehab)? @ -no Was there de-escalation of care discussed even if they declined? (Discuss DNR or withdrawal of care, Hospice)? @ -no What co-morbidities impacted this encounter? (DM, HTN, Smoking, COPD, CAD, Cancer, CVA, Hep., AIDS, mental health diagnosis, sleep apnea, morbid obesity)? @ -none Was patient admitted / discharged? @ - Undiagnosed new problem with uncertain prognosis? @ -no Drug Therapy requiring intensive monitoring for toxicity (Heparin, Nitro, Insulin, Cardizem)? @ -no Were any procedures done? @ -no Diagnosis/symptom? @ - Acute, or Chronic, or Acute on Chronic? @ -acute Uncomplicated (without systemic symptoms) or Complicated (systemic symptoms)? @ -complicated Side effects of treatment? @ -no Exacerbation, Progression, or Severe Exacerbation] @ -no Poses a threat to life or bodily function? @ -yes (Ray Sanchez) Reevaluation #5: 03/11/23 23:42 Differential Dizziness: Benign paroxysmal positional Vertigo, Menieres disease, otitis media, acoustic neuroma, vertebrobasilar insufficiency, cerebellar stroke, encephalitis, hypovolemic, arrhythmia, coronary artery syndrome, anemia, this is not meant to be an all-inclusive list (Ray Sanchez) Medical Decision Making - Lab Data Result diagrams: 03/11/23 20:05 03/11/23 20:05 <Ray Sanchez - Last Filed: 03/12/23 17:04> - Medical Decision Making 62 female DEL with evaluation of dizziness with vertigo history of same. (Ray Sanchez) - Lab Data Lab Results 03/11/23 03/11/23 03/11/23 Range/Units 20:05 20:05 20:05 WBC 5.0 (3.8-10.6) k/uL RBC 4.58 (3.80-5.40) m/uL Hgb 13.9 (11.4-16.0) gm/dL Hct 42.3 (34.0-46.0) % MCV 92.3 (80.0-100.0) fL MCH 30.3 (25.0-35.0) pg MCHC 32.9 (31.0-37.0) g/dL RDW 12.4 (11.5-15.5) % Plt Count 230 (150-450) k/uL MPV 8.0 Neutrophils % 53 % Lymphocytes % 36 % Monocytes % 6 % Eosinophils % 2 % Basophils % 2 % Neutrophils # 2.6 (1.3-7.7) k/uL Lymphocytes # 1.8 (1.0-4.8) k/uL Monocytes # 0.3 (0-1.0) k/uL Eosinophils # 0.1 (0-0.7) k/uL Basophils # 0.1 (0-0.2) k/uL PT 10.5 (9.0-12.0) sec INR 1.0 (<1.2) Sodium 138 (137-145) mmol/L Potassium 3.9 (3.5-5.1) mmol/L Chloride 105 (98-107) mmol/L Carbon Dioxide 26 (22-30) mmol/L Anion Gap 7 mmol/L BUN 12 (7-17) mg/dL Creatinine 0.65 (0.52-1.04) mg/dL Est GFR (CKD-EPI)AfAm >90 (>60 ml/min/1.73 sqM) Est GFR (CKD-EPI)NonAf >90 (>60 ml/min/1.73 sqM) Glucose 110 H (74-99) mg/dL Plasma Lactic Acid Freddy (0.7-2.0) mmol/L Calcium 9.2 (8.4-10.2) mg/dL Total Bilirubin 0.5 (0.2-1.3) mg/dL AST 20 (14-36) U/L ALT 13 (4-34) U/L Alkaline Phosphatase 51 (38-126) U/L Troponin I (0.000-0.034) ng/mL Total Protein 7.0 (6.3-8.2) g/dL Albumin 4.5 (3.5-5.0) g/dL Urine Color Urine Appearance (Clear) Urine pH (5.0-8.0) Ur Specific Carrier (1.001-1.035) Urine Protein (Negative) Urine Glucose (UA) (Negative) Urine Ketones (Negative) Urine Blood (Negative) Urine Nitrite (Negative) Urine Bilirubin (Negative) Urine Urobilinogen (<2.0) mg/dL Ur Leukocyte Esterase (Negative) Urine RBC (0-5) /hpf Urine WBC (0-5) /hpf Ur Squamous Epith Cells (0-4) /hpf Urine Mucus (None) /hpf 03/11/23 03/11/23 03/11/23 Range/Units 20:05 20:05 20:54 WBC (3.8-10.6) k/uL RBC (3.80-5.40) m/uL Hgb (11.4-16.0) gm/dL Hct (34.0-46.0) % MCV (80.0-100.0) fL MCH (25.0-35.0) pg MCHC (31.0-37.0) g/dL RDW (11.5-15.5) % Plt Count (150-450) k/uL MPV Neutrophils % % Lymphocytes % % Monocytes % % Eosinophils % % Basophils % % Neutrophils # (1.3-7.7) k/uL Lymphocytes # (1.0-4.8) k/uL Monocytes # (0-1.0) k/uL Eosinophils # (0-0.7) k/uL Basophils # (0-0.2) k/uL PT (9.0-12.0) sec INR (<1.2) Sodium (137-145) mmol/L Potassium (3.5-5.1) mmol/L Chloride (98-107) mmol/L Carbon Dioxide (22-30) mmol/L Anion Gap mmol/L BUN (7-17) mg/dL Creatinine (0.52-1.04) mg/dL Est GFR (CKD-EPI)AfAm (>60 ml/min/1.73 sqM) Est GFR (CKD-EPI)NonAf (>60 ml/min/1.73 sqM) Glucose (74-99) mg/dL Plasma Lactic Acid Freddy 0.8 (0.7-2.0) mmol/L Calcium (8.4-10.2) mg/dL Total Bilirubin (0.2-1.3) mg/dL AST (14-36) U/L ALT (4-34) U/L Alkaline Phosphatase (38-126) U/L Troponin I <0.012 (0.000-0.034) ng/mL Total Protein (6.3-8.2) g/dL Albumin (3.5-5.0) g/dL Urine Color Light Yellow Urine Appearance Clear (Clear) Urine pH 5.0 (5.0-8.0) Ur Specific Carrier 1.013 (1.001-1.035) Urine Protein Negative (Negative) Urine Glucose (UA) Negative (Negative) Urine Ketones Negative (Negative) Urine Blood Negative (Negative) Urine Nitrite Negative (Negative) Urine Bilirubin Negative (Negative) Urine Urobilinogen <2.0 (<2.0) mg/dL Ur Leukocyte Esterase Large H (Negative) Urine RBC 1 (0-5) /hpf Urine WBC 14 H (0-5) /hpf Ur Squamous Epith Cells 1 (0-4) /hpf Urine Mucus Rare H (None) /hpf Disposition <Chidi Justin - Last Filed: 03/11/23 19:33> Is patient prescribed a controlled substance at d/c from ED?: No Time of Disposition: 21:40 <Ray Sanchez - Last Filed: 03/12/23 17:04> Clinical Impression: Vertigo, BPPV (benign paroxysmal positional vertigo), Dizziness Disposition: HOME SELF-CARE Condition: Good Instructions (If sedation given, give patient instructions): Vertigo (ED) Referrals: Noam Freeman DO [Primary Care Provider] - 1-2 days
--- NOTE | 2023-03-11 19:55 | XR ---
EXAMINATION TYPE: XR chest 2V DATE OF EXAM: 03/11/2023 7:48 PM COMPARISON: Chest radiographs from 03/18/2021 TECHNIQUE: XR chest 2V Frontal and lateral views of the chest. CLINICAL INDICATION:Female, 62 years old with history of dizziness; FINDINGS: Lungs/Pleura: There is no evidence of pleural effusion, focal consolidation, or pneumothorax. Chroni c senescent parenchymal change. Pulmonary vascularity: Unremarkable. Heart/mediastinum: Cardiomediastinal silhouette is prominent in size. Atherosclerotic calcifications are seen in the aorta. Stable calcified mediastinal lymph node. Musculoskeletal: No acute osseous pathology. IMPRESSION: No acute cardiopulmonary disease/process.
[2023-03-11 20:20] LABS: Basophils # (A) 0.1 k/uL (0-0.2); Basophils % (A) 2 %; Eosinophils # (A) 0.1 k/uL (0-0.7); Eosinophils % (A) 2 %; HCT 42.3 % (34.0-46.0); HGB 13.9 gm/dL (11.4-16.0); Lymphocytes # (A) 1.8 k/uL (1.0-4.8); Lymphocytes % (A) 36 %; MCH 30.3 pg (25.0-35.0); MCHC 32.9 g/dL (31.0-37.0); MCV 92.3 fL (80.0-100.0); Monocytes # (A) 0.3 k/uL (0-1.0); Monocytes % (A) 6 %; Neutrophils # (A) 2.6 k/uL (1.3-7.7); Neutrophils % (A) 53 %; Platelet Count 230 k/uL (150-450); RBC 4.58 m/uL (3.80-5.40); RDW 12.4 % (11.5-15.5)
[2023-03-11 20:26] LABS: Prothrombin Time 10.5 sec (9.0-12.0)
[2023-03-11 20:34] LABS: ALT 13 U/L (4-34); AST 20 U/L (14-36); African American GFR (CKD) >90 (>60 ml/min/1.73 sqM); Albumin 4.5 g/dL (3.5-5.0); Alkaline Phosphatase 51 U/L (38-126); Anion Gap 7 mmol/L; Blood Urea Nitrogen 12 mg/dL (7-17); Calcium 9.2 mg/dL (8.4-10.2); Carbon Dioxide 26 mmol/L (22-30); Chloride 105 mmol/L (98-107); Glucose 110 mg/dL (74-99); Non-African American GFR(CKD) >90 (>60 ml/min/1.73 sqM); Potassium 3.9 mmol/L (3.5-5.1); Sodium 138 mmol/L (137-145); Total Bilirubin 0.5 mg/dL (0.2-1.3)
[2023-03-11 20:58] VITALS: RESP 17
[2023-03-11 21:37] LABS: Appearance,Urine Clear (Clear); Bilirubin,Urine Negative (Negative); Blood,Urine Negative (Negative); Color,Urine Light Yellow; Glucose,Urine (UA) Negative (Negative); Ketones,Urine Negative (Negative); Leukocyte Esterase,Urine Large (Negative); Mucus,Urine Rare /hpf; Nitrite,Urine Negative (Negative); Protein,Urine Negative (Negative); RBC,Urine 1 /hpf (0-5); Specific Gravity,Urine 1.013 (1.001-1.035); Squamous Epithelial Cell,Urine 1 /hpf (0-4); Urobilinogen,Urine <2.0 mg/dL (<2.0); WBC,Urine 14 /hpf (0-5)
[2023-03-11 22:03] VITALS: BP 144/84; PULSE 80; TEMP 98
== END 2023-03-11 22:08 | disposition home or self-care (01) ==
LOC: EC 18:29
DX: H81.10 Benign paroxysmal vertigo, unspecified ear (principal); F41.9 Anxiety disorder, unspecified; Z88.2 Allergy status to sulfonamides; Z88.0 Allergy status to penicillin; Z91.048 Other nonmedicinal substance allergy status; Z79.899 Other long term (current) drug therapy
CPT/HCPCS: 36415; 71046; 80053; 81001; 83605; 84484; 85025; 85610; 93005; 99285

== ENCOUNTER → 2023-04-09 | Outpatient (CLI) | payer BC ==
--- NOTE | 2023-04-09 08:18 | MM ---
Reason for Exam: Additional evaluation requested from prior study. Last mammogram was performed 1 year(s) and 1 month(s) ago. Patient History: Menarche at age 9. First Full-Term at age 15. Left ovary removed at age 47. Right ovary removed at age 47. Hysterectomy at age 47. Postmenopausal. Breast cancer, right, age 46. Patient used Hormonal Contraceptives for 9 years. 03/24/2007, Mastectomy on the Right side. 02/26/2007, Malignant Core Biopsy on the right side. 02/26/2007, Malignant Core Biopsy on the right side. 11/09/2007, Implant on the right side. 2009, Implant on the left side. Prior Study Comparison: 08/08/2019 Left Diagnostic Mammogram, [facility]. 03/21/2021 Left Diagnostic Mammogram, [facility]. 03/26/2022 Left MG diagnostic mammo LT w CAD, [facility]. Tissue Density: Left: There are scattered fibroglandular densities. Findings: Analyzed By CAD. Right-sided silicone breast implant. No significant mass, suspicious microcalcification, or other discrete abnormality is seen. Overall Assessment: Negative, BI-RAD 1 Management: Screening Mammogram of the left breast in 1 year. . Results were given to the patient verbally at the time of exam. Patient should continue monthly self-breast exams. A clinical breast exam by your physician is recommended on an annual basis. This exam should not preclude additional follow-up of suspicious palpable abnormalities. Electronically signed and approved by: Khadijah Mcmahon M.D. Radiologist
== END | disposition home or self-care (01) ==
LOC: RADMAMWWP 07:34
PROVIDERS: ATTEND Family Medicine
DX: R92.8 Other abnormal and inconclusive findings on diagnostic imaging of breast (principal); Z85.3 Personal history of malignant neoplasm of breast; Z78.0 Asymptomatic menopausal state
CPT/HCPCS: 77061; 77065

== ENCOUNTER → 2024-04-14 | Outpatient (CLI) | payer MEDICARE | END | disposition home or self-care (01) | LOC: LABWHC1 13:43 | PROVIDERS: ATTEND Nurse Practitioner Family | DX: E78.2 Mixed hyperlipidemia | CPT/HCPCS: 36415; 80061; 85025 ==